=== PATIENT | female | born 1940 | race Caucasian/White ===

== ENCOUNTER 2018-06-24 11:10 | Emergency (ER) | payer OTHER, BC ==
[~2018-06-24] VITALS: Ht 162.6 cm; Wt 86.2 kg
[~2018-06-24 11:10] MED LIST: ATEN-167 PO; CLOP75TA2 PO; FLUT1DIS3 IH; LANS30CA53 PO; LEVO175T2 PO; LORA-259 PO; NORT75CA PO; RAMI5CAP66 PO; TOLT4CAP PO
[2018-06-24 11:24] VITALS: BP_SYST 139
[2018-06-24] MEDS ORDERED: KETOROLAC TROMETHAMINE 30 MG VIAL IM ONE (11:45)
[2018-06-24 13:00] VITALS: BP_SYST 139
== END 2018-06-24 13:05 | disposition home or self-care (01) ==
LOC: SED 11:10
DX: M41.9 Scoliosis, unspecified (principal); M54.5 Low back pain; R03.0 Elevated blood-pressure reading, without diagnosis of hypertension; I10 Essential (primary) hypertension; J44.9 Chronic obstructive pulmonary disease, unspecified; Z86.73 Personal history of transient ischemic attack (TIA), and cerebral infarction without residual deficits; Z85.850 Personal history of malignant neoplasm of thyroid; Z88.5 Allergy status to narcotic agent; Z88.6 Allergy status to analgesic agent; Z79.899 Other long term (current) drug therapy
CPT/HCPCS: 72100; 74018; 96372; 99283; J1885

== ENCOUNTER 2018-07-12 12:17 | Outpatient (CLI) | payer OTHER, BC | END 2018-07-12 19:18 | disposition home or self-care (01) | LOC: SRD 12:17 | PROVIDERS: ATTEND Family Medicine | DX: D71 Functional disorders of polymorphonuclear neutrophils (principal); M41.80 Other forms of scoliosis, site unspecified; Z90.49 Acquired absence of other specified parts of digestive tract ==

== ENCOUNTER 2018-10-16 21:42 | Inpatient (IN) | payer OTHER, BC ==
[~2018-10-16] VITALS: Ht 162.6 cm; Wt 88.5 kg
[2018-10-16 21:49] VITALS: BP_SYST 88
--- NOTE | 2018-10-16 22:06 | NUR ---
Placed in room 08 . Placed on bus monitor, blood pressure machine and pulse oximeter. To gown for exam. Side rails up. Report given to Any BAILEY.
--- NOTE | 2018-10-16 22:18 | NUR ---
PT AAOx4 presents to ED via wheelchair c/o generalized pain s/p fall x 1 week ago. Pt reports pain mostly on tailbone and bilateral legs. Denies KO. Has been seen by PMD, given RX tramadol, but states she gets too dizzy and weak when she takes them. No other injuries/complaints per pt/noted. at bedside. Will continue to monitor.
--- NOTE | 2018-10-16 22:19 | NUR ---
Medication reconciliation completed with information provided by Patient. Any prior medication reconciliation on file was reviewed and corrected.
--- NOTE | 2018-10-16 22:55 | NUR ---
ER Dr. Green at bedside examining patient.
[2018-10-16] MEDS ORDERED: KETOROLAC TROMETHAMINE 30 MG VIAL IM ONE (23:00)
--- NOTE | 2018-10-16 23:05 | NUR ---
# 20 gauge angiocath placed to LAC. Use of asceptic technique. Opsite placed over site. Blood return noted. Blood for lab drawn from site. Flushed with 10 cc of normal saline. No evidence of infiltration noted. Patient tolerated well.
--- NOTE | 2018-10-16 23:07 | NUR ---
EKG performed at BS by ANA Will. Physician given copy of EKG for review.
--- NOTE | 2018-10-16 23:10 | NUR ---
Blood cultures drawn, prior to administration of antibiotic.
[2018-10-16 23:22] LABS: HEMATOCRIT 36.4 % (36-48); HEMOGLOBIN 11.6 g/dL (12.0-16.0); MEAN CORPUSCULAR HEMOGLOBIN 23 pg (27-31); MEAN CORPUSCULAR HGB CONC 32 % (32-36); MEAN CORPUSCULAR VOLUME 72 fL (79.0-98.0); PLATELET COUNT (AUTO) 255 K/uL (130-430); RED BLOOD CELL COUNT(AUTO) 5.09 MIL/uL (4.2-6.2); RED CELL DISTRIBUTION WIDTH 18.2 % (9.0-15.0); WHITE BLOOD COUNT (AUTO) 18.4 K/uL (4.8-10.8)
[2018-10-16] MEDS ORDERED: KETOROLAC TROMETHAMINE 15 MG VIAL IVP ONE (23:30)
--- NOTE | 2018-10-16 23:40 | NUR ---
Urine specimen collected and analyzed in ER. Results given to ER MD. Patient unable to give enough for Urinalysis. Patient refusing Straight catheter. MD notified.
[2018-10-16 23:41] LABS: ATYPICAL LYMPHOCYTES % 0 % (0-0); BAND % (MANUAL) 11 % (0-6); LYMPHOCYTES % (MANUAL) 3 % (20-46)
[2018-10-16 23:42] LABS: BASOPHILS % (MANUAL) 0 % (0-2); EOSINOPHILS % (MANUAL) 3 % (0-7); METAMYELOCYTES % 3 % (0-0); MONOCYTES % (MANUAL) 10 % (0-11)
[2018-10-16 23:47] LABS: ALANINE AMINOTRANSFERASE 59 U/L (12-78); ALBUMIN 2.2 g/dL (3.4-4.8); ANION GAP 11 (5-15); ASPARTATE AMINOTRANSFERASE 36 U/L (10-37); CALCIUM 8.6 mg/dL (8.4-11.0); CHLORIDE 96 mmol/L (98-107); CREATININE 1.59 mg/dL (0.55-1.30); GLUCOSE 104 mg/dL (70-99); SODIUM SERUM 134 mmol/L (136-145); TOTAL BILIRUBIN 0.3 mg/dL (0.0-1.0); UREA NITROGEN, BLOOD 45 mg/dL (8-21)
--- NOTE | 2018-10-16 23:49 | NUR ---
Patient transported to radiology via [facility], accompanied by Hayes Dowling
[2018-10-16 23:54] LABS: POTASSIUM 2.6 mmol/L (3.5-5.1)
[2018-10-17] MEDS ORDERED: cefTRIAXone 1 GM IVPB PREMIX 50 ML IV ONE
--- NOTE | 2018-10-17 00:04 | NUR ---
Patient returned from Radiology in stable condition. Patient tolerated well.
[2018-10-17] MEDS ORDERED: NACL 0.9% 1,000 ML IV ONE ×2 (00:15)
--- NOTE | 2018-10-17 01:32 | NUR ---
Patient states she is full code. Paperwork placed in chart
--- NOTE | 2018-10-17 02:10 | NUR ---
Patient will be admitted to care of Dr. Honeycutt. Admitted to Med Surg unit. Will go to room 105 B. Belongings list completed. Summary report printed. Report will be given at bedside.
--- NOTE | 2018-10-17 02:11 | NUR ---
Transfer to [facility]. IV present no sign or symptom of infiltration.
--- NOTE | 2018-10-17 02:13 | NUR ---
ADMISSION NOTE Received patient from ER via gurney. Patient admitted with diagnosis of UTI. Patient is awake, alert, oriented X 4. Patient oriented to hospital room, call light, toileting, pain management and safety-teach back done. Patient informed that LYNN Betts will be primary nurse and that their room number is 105B. Personal belongings checked and Belongings List documented. Call light within reach.
[2018-10-17 02:15] VITALS: BP_SYST 116
--- NOTE | 2018-10-17 02:16 | NUR ---
ROUNDS PATIENT IN BED, AWAKE, ALERT, ORIENTED, NOT IN DISTRESS, VITALS STABLE. DENIES ANY PAIN AND DISCOMFORT AT THIS TIME. ADMISSION DATA AND ASSESSMENT DONE AND DOCUMENTED. SEE FLOWSHEET. ORIENTED TO HER ROOM, PHONE, TV AND CALL LIGHT AND ENCOURAGED TO CALL FOR HELP. PLAN OF CARE DISCUSSED AND PATIENT VERBALIZED UNDERSTANDING. NEEDS ATTENDED TO. SAFETY AND FALL PRECAUTION MEASURES IN PLACED. BED IN LOW AND LOCKED POSITION. BED ALARM ON. CALL LIGHT PLACED WITHIN REACH.
[2018-10-17 02:31] LABS: BILIRUBIN,URINE NEGATIVE (NEGATIVE); BLOOD, URINE NEGATIVE (NEGATIVE); CLARITY/URINE CLEAR (CLEAR); COLOR,URINE YELLOW (YELLOW); GLUCOSE,URINE NEGATIVE (NEGATIVE); KETONES,URINE NEGATIVE (NEGATIVE); LEUKOCYTE ESTERASE ,URINE TRACE (NEGATIVE); NITRITE, URINE NEGATIVE (NEGATIVE); PROTEIN URINE TRACE (NEGATIVE); UROBILINOGEN,URINE 0.2 (0.2-1.0)
[2018-10-17 02:37] LABS: BACTERIA,URINE FEW /HPF (None Seen); RBC,URINE 0-3 /HPF (0-3)
[2018-10-17] MEDS ORDERED: KCL 20 mEq in D5/0.45NS 1000mL 1,000 ML IV ONE (03:56)
[2018-10-17] MEDS: KCL 20 mEq in D5/0.45NS 1000mL 1,000 ML IV SCH ×2 (04:05→17:58)
--- NOTE | 2018-10-17 04:13 | NUR ---
ROUNDS PATIENT ASLEEP, NOT IN DISTRESS, RESPIRATIONS EVEN AND UNLABORED, WILL CONTINUE TO MONITOR.
--- NOTE | 2018-10-17 06:41 | NUR ---
CLOSING NOTES PATIENT AWAKE, VITALS STABLE, NO PAIN AT THIS TIME. ALL NEEDS ATTENDED TO. SAFETY MEASURES MAINTAINED. CALL LIGHT PLACED WITHIN REACH.
[2018-10-17 06:53] LABS: BASOPHILS # (AUTO) 0.1 K/uL (0.0-0.2); BASOPHILS % (AUTO) 0.5 % (0.0-2.0); EOSINOPHILS # (AUTO) 0.7 K/uL (0.0-0.4); HEMATOCRIT 34.5 % (36-48); LYMPHOCYTES # (AUTO) 0.9 K/uL (1.0-5.5); LYMPHOCYTES % (AUTO) 6.2 % (20.5-51.5); MEAN CORPUSCULAR HEMOGLOBIN 23 pg (27-31); MEAN CORPUSCULAR HGB CONC 32 % (32-36); MEAN CORPUSCULAR VOLUME 72 fL (79.0-98.0); MONOCYTES # (AUTO) 1.5 K/uL (0.0-1.0); MONOCYTES % (AUTO) 10.5 % (1.7-9.3); NEUTROPHILS # (AUTO) 11.2 K/uL (1.8-7.7); NEUTROPHILS % (AUTO) 77.8 % (40.0-70.0); PLATELET COUNT (AUTO) 233 K/uL (130-430); WHITE BLOOD COUNT (AUTO) 14.3 K/uL (4.8-10.8)
[2018-10-17 07:18] LABS: ALANINE AMINOTRANSFERASE 55 U/L (12-78); ALBUMIN 2.2 g/dL (3.4-4.8); ANION GAP 10 (5-15); ASPARTATE AMINOTRANSFERASE 31 U/L (10-37); CALCIUM 8.9 mg/dL (8.4-11.0); CHLORIDE 96 mmol/L (98-107); CREATININE 1.43 mg/dL (0.55-1.30); GLUCOSE 101 mg/dL (70-99); POTASSIUM 3.1 mmol/L (3.5-5.1); SODIUM SERUM 131 mmol/L (136-145); TOTAL BILIRUBIN 0.3 mg/dL (0.0-1.0); UREA NITROGEN, BLOOD 45 mg/dL (8-21)
--- NOTE | 2018-10-17 08:00 | NUR ---
initial notes rec patient asleep but arousable to stimuli. ivf infusing well on the l ac. no infiltration noted. resp easy and unlabored. no sob noted. bed to the lowest position and side rails up and locked. call light within reached and knows when to call for assiatance.
[2018-10-17] MEDS: CEFEPIME 1 GM in D5W 50 ML IV SCH ×2 (09:27→20:37)
--- NOTE | 2018-10-17 10:38 | NUR ---
rounds seen by dr montes at bedside. no sob noted.
[2018-10-17] MEDS ORDERED: POTASSIUM CHLORIDE 20 MEQ TAB.PRT.SR PO ONE ×2 (11:00)
[2018-10-17 11:44] VITALS: BP_SYST 106
[2018-10-17 11:46] VITALS: BP_SYST 106
[2018-10-17] MEDS: LevALBUTEROL HCL 1.25 MG/0.5 ML *CONC.* VIAL.NEB (XOPENEX CONC.) INH PRN (11:49)
--- NOTE | 2018-10-17 12:00 | NUR ---
rounds uses the bed arreguin at intervals otherwise incontinent. keep patient dry and clean. seen by dr montes.
[2018-10-17] MEDS ORDERED: ALBUTEROL SULFATE 0.083% 2.5 MG/3 ML VIAL.NEB INH SCH (13:00)
[2018-10-17] MEDS: LevALBUTEROL HCL 1.25 MG/0.5 ML *CONC.* VIAL.NEB (XOPENEX CONC.) INH SCH ×2 (15:00→23:17)
[2018-10-17 15:02] VITALS: BP_SYST 111
--- NOTE | 2018-10-17 15:18 | NUR ---
PAGE: DR. BRADLEY DIALED [phone] LEFT PHONE NUMBER FOR RETURN CALL.
--- NOTE | 2018-10-17 15:55 | NUR ---
rounds dr montes was called for elevated temp. awaiting to call back.
[2018-10-17] MEDS ORDERED: ACETAMINOPHEN 325 MG TABLET ONE (17:56)
--- NOTE | 2018-10-17 19:40 | NUR ---
ROUNDS PATIENT RESTING COMFORTABLY IN BED, VITALS TABLE, NO COMPLAINTS AT THIS TIME. ASSESSMENT DONE AND DOCUMENTED. SEE FLOWSHEET. NEEDS ATTENDED TO. SAFETY AND FALL PRECAUTION MEASURES IN PLACED. BED IN LOW AND LOCKED POSITON. BED ALARM ON. CALL LIGHT PLACED WITHIN REACH AND ENCOURAGED TO CALL FOR ASSISTANCE NEEDED.
--- NOTE | 2018-10-17 22:20 | NUR ---
Paged Dr. Honeycutt
--- NOTE | 2018-10-17 22:40 | NUR ---
DR. BRADLEY CALLED AND TALKED TO DR. BRADLEY , PATIENT WANTS TO TAKE HER NIGHT MEDICATIONS. NEW ORDERS GIVEN. WILL CONTINUE TO MONITOR.
[2018-10-17] MEDS ORDERED: RAMIPRIL 5 MG CAPSULE PO ONE (22:45)
[2018-10-17] MEDS ORDERED: LISINOPRIL 10 MG TABLET (PRINIVIL) PO SCH (23:00)
[2018-10-17] MEDS ORDERED: NORTRIPTYLINE HCL 25 MG CAPSULE PO SCH (23:00)
[2018-10-17] MEDS ORDERED: CLOPIDOGREL BISULFATE 75 MG TABLET PO SCH (23:00)
[2018-10-17] MEDS ORDERED: LORazepam 1 MG TABLET PO SCH (23:00)
[2018-10-17] MEDS: BUDESONIDE 0.5 MG/2 ML AMPUL.NEB INH SCH (23:27)
[2018-10-18 00:07] VITALS: BP_SYST 105
--- NOTE | 2018-10-18 00:23 | NUR ---
PATIENT RESTING: Patient resting quietly. No acute distress noted. Vital signs within normal range.
--- NOTE | 2018-10-18 02:13 | NUR ---
ROUNDS PATIENT ASLEEP, NO SIGNS OF ANY PAIN AND DISCOMFORT NOTED. WILL CONTINUE TO MONITOR.
--- NOTE | 2018-10-18 04:15 | NUR ---
ROUNDS PATIENT SLEEPING, RESPIRATIONS EVEN AND UNLABORED, NO PAIN AND DISCOMFORT NOTED. WILL CONTINUE TO MONITOR.
[2018-10-18] MEDS: KCL 20 mEq in D5/0.45NS 1000mL 1,000 ML IV SCH ×2 (06:06→09:33)
--- NOTE | 2018-10-18 06:17 | NUR ---
CLOSING NOTES PATIENT AWAKE, NO COMPLAINTS AT THIS TIME, ALL NEEDS ATTENDED TO. SAFETY MEASURES MAINTAINED. CALL LIGHT PLACED WITHIN REACH.
[2018-10-18 06:21] LABS: ANION GAP 7 (5-15); CALCIUM 9.2 mg/dL (8.4-11.0); CHLORIDE 100 mmol/L (98-107); CREATININE 0.97 mg/dL (0.55-1.30); GLUCOSE 132 mg/dL (70-99); PHOSPHORUS 2.7 mg/dL (2.7-4.5); SODIUM SERUM 134 mmol/L (136-145); UREA NITROGEN, BLOOD 23 mg/dL (8-21)
[2018-10-18] MEDS: ACETAMINOPHEN 325 MG TABLET PO PRN ×3 (06:38→22:16)
[2018-10-18 06:46] LABS: BASOPHILS % (AUTO) 0.2 % (0.0-2.0); EOSINOPHILS # (AUTO) 0.7 K/uL (0.0-0.4); EOSINOPHILS % (AUTO) 6.2 % (0.0-4.0); HEMATOCRIT 36.1 % (36-48); HEMOGLOBIN 11.5 g/dL (12.0-16.0); LYMPHOCYTES # (AUTO) 1.2 K/uL (1.0-5.5); LYMPHOCYTES % (AUTO) 10.8 % (20.5-51.5); MEAN CORPUSCULAR HEMOGLOBIN 23 pg (27-31); MEAN CORPUSCULAR HGB CONC 32 % (32-36); MEAN CORPUSCULAR VOLUME 71 fL (79.0-98.0); MONOCYTES # (AUTO) 1.5 K/uL (0.0-1.0); MONOCYTES % (AUTO) 14.1 % (1.7-9.3); NEUTROPHILS # (AUTO) 7.5 K/uL (1.8-7.7); NEUTROPHILS % (AUTO) 68.7 % (40.0-70.0); PLATELET COUNT (AUTO) 280 K/uL (130-430); RED BLOOD CELL COUNT(AUTO) 5.07 MIL/uL (4.2-6.2); RED CELL DISTRIBUTION WIDTH 18.1 % (9.0-15.0); WHITE BLOOD COUNT (AUTO) 10.9 K/uL (4.8-10.8)
[2018-10-18] MEDS: LevALBUTEROL HCL 1.25 MG/0.5 ML *CONC.* VIAL.NEB (XOPENEX CONC.) INH SCH ×3 (07:00→23:00)
[2018-10-18] MEDS: BUDESONIDE 0.5 MG/2 ML AMPUL.NEB INH SCH ×2 (07:00→19:05)
--- NOTE | 2018-10-18 07:40 | NUR ---
INITIAL NOTE RECEIVED PT IN BED, NO S/S OF DISTRESS OR SOB NOTED, PT HAS NO C/O PAIN AT THIS TIME, PT IN STABLE CONDITION. PT AAOX4, VERBAL. IV CATHETER PATENT, NO SIGNS OF INFECTION OR INFILTRATION NOTED, RUNNING IV FLUIDS ORDERED. BED AT LOWEST POSITION, CALL LIGHT WITHIN REACH, WILL CONTINUE TO MONITOR PT FOR ANY CHANGES, FALL AND SAFETY PRECAUTIONS IN PLACE. BED ALARM ON.
[2018-10-18 08:00] VITALS: BP_SYST 105
--- NOTE | 2018-10-18 08:30 | NUR ---
INITIAL NOTE RECEIVED PATIENT FROM NIGHT RN. PATIENT RESTING COMFORTABLY IN BED. FALL RISK PRECAUTIONS IN PLACE. BED IN LOWEST POSITION, CALL LIGHT WITHIN REACH, BED ALARM ON. PATIENT APPEARS TO BE IN NO PHYSICAL DISTRESS OR PAIN. WILL CONTINUE TO MONITOR.
[2018-10-18] MEDS: PANTOPRAZOLE SODIUM 40 MG TAB PO SCH (09:00)
[2018-10-18] MEDS: ATENOLOL 50 MG TABLET (TENORMIN) PO SCH (09:00)
[2018-10-18] MEDS: LISINOPRIL 10 MG TABLET (PRINIVIL) PO SCH (09:00)
[2018-10-18] MEDS ORDERED: LORazepam 1 MG TABLET PO SCH (09:00)
[2018-10-18] MEDS: CEFEPIME 1 GM in D5W 50 ML IV SCH ×2 (09:33→21:37)
[2018-10-18] MEDS: CLOPIDOGREL BISULFATE 75 MG TABLET PO SCH (09:33)
--- NOTE | 2018-10-18 10:00 | NUR ---
ROUNDING NOTE PATIENT IS RESTING COMFORTABLY. HELPED PATIENT AMBULATE TO BEDSIDE COMMODE. PATIENT TOLERATED WELL. PATIENT DENIES ANY PAIN OR DISCOMFORT. PATIENT WAS RETURNED TO BED. FALL PRECAUTIONS IN PLACE. BED IN LOWEST POSITION, CALL LIGHT WITHIN REACH, BED ALARM ON. WILL CONTINUE TO MONITOR.
--- NOTE | 2018-10-18 10:10 | NUR ---
Nutrition Update Arpan Scale 17 noted. Pt admitted for UTI. Diet: regular BMI: 33.5 kg/m2 RD to follow per nutrition care standards.
--- NOTE | 2018-10-18 10:15 | NUR ---
IV PLACEMENT: # 22 gauge angiocath placed to right wrist. Use of asceptic technique. Opsite placed over site. Blood return noted. Flushed with 10 cc of normal saline. No evidence of infiltration noted. Patient tolerated. Aseptic technique used. Removed iv catheter on left forearm, no active bleeding, occluded, dressing in place, catheter intact.
--- NOTE | 2018-10-18 12:30 | NUR ---
ROUNDS PT SITTING UP IN BED EATING LUNCH, NO S/S OF DISTRESS OR SOB NOTED, PT HAS NO C/O PAIN AT THIS TIME, PT IN STABLE CONDITION. WILL CONTINUE TO MONITOR PT FOR ANY CHANGES.
[2018-10-18 13:05] VITALS: BP_SYST 110
--- NOTE | 2018-10-18 14:10 | NUR ---
HYGIENE NOTE HELPED PATIENT AMBULATE TO RESTROOM. ASSISTED PATIENT WITH SPONGE BATH, AND ORAL HYGIENE. BED LINENS CHANGED. PATIENT TOLERATED WELL BUT PATIENT'S GAIT IS WEAK. ASSISTED PATIENT BACK TO BED. PATIENT LAYING COMFORTABLY IN BED WITH FALL PRECAUTIONS IN PLACE. BED IN LOWEST POSITION, SIDE RAILS UP, CALL LIGHT WITHIN REACH, BED ALARM ON. WILL CONTINUE TO MONITOR.
--- NOTE | 2018-10-18 15:00 | NUR ---
MD ROUNDS DR BRADLEY ROUNDING, AWARE OF PATIENT'S CONDITION, NEW ORDERS GIVEN.
[2018-10-18] MEDS ORDERED: POTASSIUM CHLORIDE 20 MEQ TAB.PRT.SR PO ONE (15:15)
--- NOTE | 2018-10-18 16:20 | NUR ---
ROUNDING NOTE PATIENT IS LAYING SUPINE IN BED. VITALS WERE TAKEN AND PATIENT REPORTED PAIN OF 7/10. PATIENT ONLY WANTED TYLENOL 650MG. TREATED PATIENT WITH PAIN MEDICATION. PHYSICAL THERAPY IS AT BEDSIDE ASSESSING PATIENT. FALL PRECAUTIONS IN PLACE. PATIENT'S BED IS IN LOWEST POSITION, SIDE RAILS UP, BED ALARM ON, CALL LIGHT WITHIN REACH OF PATIENT. WILL CONTINUE TO MONITOR.
[2018-10-18 16:26] VITALS: BP_SYST 121
--- NOTE | 2018-10-18 17:51 | NUR ---
P.T. NOTES P.T. ANGY COMPLETED; NURSING TO [facility] Addendum: 10/18/18 at 1751 by Jeannie Chávez PT Amended: Links added.
--- NOTE | 2018-10-18 18:33 | NUR ---
CLOSING NOTE PATIENT RESTING COMFORTABLY IN BED. PATIENT DOES NOT APPEAR TO BE IN ANY DISTRESS OR DISCOMFORT. STILL WAITING FOR PATIENT TO URINATE TO COLLECT URINE SAMPLE. FALL PRECAUTIONS IN PLACE, SIDE RAILS UP, BED IN LOWEST POSITION, BED ALARM ON, CALL LIGHT WITHIN REACH OF PATIENT. WILL ENDORSE TO NEXT SHIFT.
[2018-10-18] MEDS: LevALBUTEROL HCL 1.25 MG/0.5 ML *CONC.* VIAL.NEB (XOPENEX CONC.) INH PRN (18:48)
[2018-10-18 20:20] VITALS: BP_SYST 132
--- NOTE | 2018-10-18 20:20 | NUR ---
Opening notes Pt AAOx4, VSS, afebrile. No s/s distress noted. IVF infusing at ordered rate R. wrist 22G no s/s infiltration. Call light/items within reach. Safety measures in place. To monitor.
--- NOTE | 2018-10-18 20:58 | NUR ---
Urine sample for culture collected and sent to lab.
[2018-10-18] MEDS ORDERED: RAMIPRIL 5 MG CAPSULE PO SCH (21:00)
[2018-10-18] MEDS ORDERED: CLOPIDOGREL BISULFATE 75 MG TABLET PO SCH (21:00)
[2018-10-18] MEDS: LORazepam 1 MG TABLET PO SCH (21:36)
[2018-10-18] MEDS: NORTRIPTYLINE HCL 25 MG CAPSULE PO SCH (21:36)
[2018-10-19 00:17] VITALS: BP_SYST 137
[2018-10-19] MEDS: KCL 20 mEq in D5/0.45NS 1000mL 1,000 ML IV SCH (01:09)
--- NOTE | 2018-10-19 01:09 | NUR ---
Rounds Pt awake, used bedside commode. Pt voided. IV fluid bag replaced. R.wrist 22G no s/s infiltration. Call light within easy reach. Bed low, locked, side rails x2 up. Will continue to monitor.
--- NOTE | 2018-10-19 04:10 | NUR ---
Rounds Pt alert, awake, BOOK SEWING MACHINE OPERATOR assisted pt to use the bedside commode, pt voided. Call light within reach. Safety measures in place. To monitor.
--- NOTE | 2018-10-19 05:05 | NUR ---
Closing notes Pt awake, no s/s distress noted. Pt denies any pain at this time. Pt used the bedside commode and voided. IVF infusing at ordered rate R. wrist 22G no s/s infiltration. Call light/items within reach. Bed low, locked, siderails x2. Pt refused bed alarm.
[2018-10-19 07:13] LABS: BASOPHILS # (AUTO) 0.1 K/uL (0.0-0.2); BASOPHILS % (AUTO) 0.7 % (0.0-2.0); EOSINOPHILS # (AUTO) 0.7 K/uL (0.0-0.4); EOSINOPHILS % (AUTO) 7.9 % (0.0-4.0); HEMATOCRIT 36.4 % (36-48); HEMOGLOBIN 11.6 g/dL (12.0-16.0); LYMPHOCYTES # (AUTO) 2.1 K/uL (1.0-5.5); LYMPHOCYTES % (AUTO) 23.8 % (20.5-51.5); MEAN CORPUSCULAR HEMOGLOBIN 23 pg (27-31); MEAN CORPUSCULAR HGB CONC 32 % (32-36); MEAN CORPUSCULAR VOLUME 72 fL (79.0-98.0); MONOCYTES % (AUTO) 11.5 % (1.7-9.3); NEUTROPHILS # (AUTO) 4.9 K/uL (1.8-7.7); NEUTROPHILS % (AUTO) 56.1 % (40.0-70.0); PLATELET COUNT (AUTO) 303 K/uL (130-430); RED BLOOD CELL COUNT(AUTO) 5.07 MIL/uL (4.2-6.2); RED CELL DISTRIBUTION WIDTH 18.6 % (9.0-15.0); WHITE BLOOD COUNT (AUTO) 8.7 K/uL (4.8-10.8)
[2018-10-19] MEDS: LevALBUTEROL HCL 1.25 MG/0.5 ML *CONC.* VIAL.NEB (XOPENEX CONC.) INH SCH ×3 (07:30→23:00)
[2018-10-19] MEDS: BUDESONIDE 0.5 MG/2 ML AMPUL.NEB INH SCH ×2 (07:30→19:00)
[2018-10-19 07:38] LABS: ANION GAP 9 (5-15); CALCIUM 8.9 mg/dL (8.4-11.0); CHLORIDE 102 mmol/L (98-107); CREATININE 0.66 mg/dL (0.55-1.30); GLUCOSE 118 mg/dL (70-99); PHOSPHORUS 2.9 mg/dL (2.7-4.5); POTASSIUM 3.4 mmol/L (3.5-5.1); SODIUM SERUM 138 mmol/L (136-145); UREA NITROGEN, BLOOD 11 mg/dL (8-21)
[2018-10-19] MEDS: CLOPIDOGREL BISULFATE 75 MG TABLET PO SCH (10:28)
[2018-10-19] MEDS: LISINOPRIL 10 MG TABLET (PRINIVIL) PO SCH (10:29)
[2018-10-19] MEDS: PANTOPRAZOLE SODIUM 40 MG TAB PO SCH (10:30)
[2018-10-19] MEDS: ATENOLOL 50 MG TABLET (TENORMIN) PO SCH (10:30)
[2018-10-19 11:39] VITALS: BP_SYST 118
--- NOTE | 2018-10-19 12:02 | NUR ---
Dietitian Recommendations *Recommend continuing Regular diet per MD orders. Please see Nutritional Assessment for details. DEBORAH, RAFA
[2018-10-19] MEDS: CEFEPIME 1 GM in D5W 50 ML IV SCH ×2 (14:46→20:51)
[2018-10-19] MEDS: ACETAMINOPHEN 325 MG TABLET PO PRN ×2 (14:53→20:51)
[2018-10-19 15:53] VITALS: BP_SYST 125
--- NOTE | 2018-10-19 19:42 | NUR ---
At the beginning of the shift pt in bed,awake,alert,calm,room air,no c/o or discomfort,IVF infusing with no diff.,call light in reach,pt told to call for assistance,will monitor. During the day pt cooperative,adm, meds as ordered,IVF infusing,this alessia
--- NOTE | 2018-10-19 19:46 | NUR ---
Pt visiting this evening
[2018-10-19 20:35] VITALS: BP_SYST 114
--- NOTE | 2018-10-19 20:35 | NUR ---
Opening notes Pt AAox3, VSS afebrile. IVF infusing at ordered rate via R. FA 22G clear and patent. Call light within reach. To monitor.
[2018-10-19] MEDS: LORazepam 1 MG TABLET PO SCH (20:50)
[2018-10-19] MEDS: NORTRIPTYLINE HCL 25 MG CAPSULE PO SCH (20:52)
--- NOTE | 2018-10-19 22:13 | NUR ---
Dr. Tangela boswell.
--- NOTE | 2018-10-20 00:40 | NUR ---
Commode Pt awake, assisted to bedside commode. Pt urinated. Call light within reach. Bed low, locked, pt refused bed alarm on. To monitor.
[2018-10-20] MEDS: KCL 20 mEq in D5/0.45NS 1000mL 1,000 ML IV SCH (01:00)
[2018-10-20 04:30] VITALS: BP_SYST 121
--- NOTE | 2018-10-20 05:45 | NUR ---
Closing notes Pt asleep, no s/s distress or discomfort. IVF infusing at ordered rate R. FA 22G no s/s infiltration. Call light/items within reach. Safety measures in place. To endorse to AM nurse.
[2018-10-20] MEDS: BUDESONIDE 0.5 MG/2 ML AMPUL.NEB INH SCH (07:00)
[2018-10-20] MEDS: LevALBUTEROL HCL 1.25 MG/0.5 ML *CONC.* VIAL.NEB (XOPENEX CONC.) INH SCH (07:00)
--- NOTE | 2018-10-20 08:00 | NUR ---
AM note patient resting in bed, a/ox4, denies pain, assessment complete, educated on plan of care and call light system, patient verbalized understanding at this time, patient voiced that she wants to go home today, she stated," I might sign myself out," informed patient that she will need to sign an Against Medical Advice form, patient verbalized understanding and stated, "I will think about it," continuing to monitor, bed in lowest position, two side rails up, bed alarm on, bed close to nursing station, fall and aspiration precautions in place, call light within reach.
[2018-10-20] MEDS: LISINOPRIL 10 MG TABLET (PRINIVIL) PO SCH (08:50)
[2018-10-20] MEDS: PANTOPRAZOLE SODIUM 40 MG TAB PO SCH (08:50)
[2018-10-20] MEDS: CEFEPIME 1 GM in D5W 50 ML IV SCH (08:51)
[2018-10-20] MEDS: ATENOLOL 50 MG TABLET (TENORMIN) PO SCH (08:51)
[2018-10-20] MEDS: CLOPIDOGREL BISULFATE 75 MG TABLET PO SCH (08:51)
--- NOTE | 2018-10-20 08:51 | NUR ---
Medication patient resting in bed, awake, denies pain, educated on AM medications uses and potential side effects, she verbalized understanding and tolerated well, IV line is patent and infusing well, no s/s of infiltration, continuing to monitor, bed in lowest position, two side rails up, call light within reach, fall and aspiration precautions in place. Patient refusing the bed alarm, educated her on safety precautions, she verbalized understanding and still refuses.
[2018-10-20 09:04] VITALS: BP_SYST 114
[2018-10-20 10:18] VITALS: BP_SYST 114
[2018-10-20] MEDS: ACETAMINOPHEN 325 MG TABLET PO PRN (10:52)
--- NOTE | 2018-10-20 10:52 | NUR ---
Tylenol patient resting in bed, awake, complaining of lower back aching, administered Tylenol per MD orders, also applied lotion to the patient's back per her request, no other needs at this time, continuing to monitor, bed in lowest position, two side rails up, call light within reach, fall and aspiration precautions in place, patient still refuses bed alarm.
[2018-10-20 11:31] VITALS: BP_SYST 112
--- NOTE | 2018-10-20 12:30 | NUR ---
RN rounds patient resting in bed, awake, denies pain, patient is anxious about discharge home today, patient made aware that Charge Nurse Irish BAILEY, spoke with Dr. Honeycutt, and MD will be rounding this afternoon and plans to discharge the patient, she verbalized understanding and stated, " Okay, I will wait," will follow up with potential discharge home for today, continuing to monitor the patient, bed in lowest position, two side rails up, call light within reach, fall and aspiration precautions in place, patient still refuses bed alarm.
[2018-10-20] MEDS ORDERED: AMOX-426 PO (14:16)
[2018-10-20] MEDS ORDERED: GUAI-723 PO (14:16)
[2018-10-20 14:19] VITALS: BP_SYST 112
--- NOTE | 2018-10-20 14:50 | NUR ---
D/C Patient Patient given medication reconciliation form and D/C instructions. Exit Care provided. Patient verbalized understanding. MD discussed with patient the results and treatment provided. Ambulatory with steady gait for discharge to home. Patient in stable condition, ID band removed. IV catheter removed, intact and dressing applied, no active bleeding. Rx of Augmentin PO, Ativan PO, Mucinex PO given. Patient educated on pain management. All belongings sent with patient.
--- NOTE | 2018-10-26 12:00 | NUR ---
Discharge Follow Up Phone Call HEAT SEAL OPERATOR phoned patient, . She filled her prescriptions and has attended a follow up appointment with her PCP, Dr Reyes.
== END 2018-10-20 14:50 | disposition home or self-care (01) | DRG 871 ==
LOC: SED 21:42 → SMU 10-17 01:26
PROVIDERS: ADMIT Family Medicine; ATTEND Family Medicine
DX: A41.9 Sepsis, unspecified organism (principal); G93.41 Metabolic encephalopathy; E43 Unspecified severe protein-calorie malnutrition; N17.9 Acute kidney failure, unspecified; N39.0 Urinary tract infection, site not specified; E87.1 Hypo-osmolality and hyponatremia; E86.0 Dehydration; J44.9 Chronic obstructive pulmonary disease, unspecified; M19.90 Unspecified osteoarthritis, unspecified site; E03.9 Hypothyroidism, unspecified; E87.6 Hypokalemia; I10 Essential (primary) hypertension; J06.9 Acute upper respiratory infection, unspecified; Z68.33 Body mass index [BMI] 33.0-33.9, adult; Z88.5 Allergy status to narcotic agent; Z88.8 Allergy status to other drugs, medicaments and biological substances; Z85.850 Personal history of malignant neoplasm of thyroid; Z86.73 Personal history of transient ischemic attack (TIA), and cerebral infarction without residual deficits
CPT/HCPCS: 36415; 70450-TC; 72110; 72125-TC; 80048; 80053; 81000-TC; 82550-TC; 83605; 83735-TC; 84100-TC; 84484; 85007; 85025; 85027; 87040-TC; 87086; 93005; 94640; 94760; 96361; 96365; 96375; 99285; J0692; J0696; J1885; J7060; J7612; J7626